=== PATIENT | female | born 1955 | race Caucasian/White ===

== ENCOUNTER → 2016-12-08 12:16 | Outpatient (CLI) | payer OTHER ==
[~2016-12-08 12:16] MED LIST: ATARAX 25 MG TA25 MG PO; AUGMENTIN 875-11 TAB PO; BROMFED-DM COU473 ML PO; BUPROPION HCL100 M1 PO; ESTRACE 0.5 MG0.5 MG PO; FLUTICASONE PRO16 GM NASAL; HCTZ25 MG PO; IPRATROPIUM BR42 MCG NASAL; KLONOPIN0.5 MG PO; LEVAQUIN750 MG PO; MEDROL DOSE PACK4 MG PO; PROAIR HFA8.5 GM INH; PROTONIX40 MG PO
[2017-01-05 13:39] VITALS: BMI 23.0
== END | disposition home or self-care (01) ==
LOC: D.RAD 12:16
DX: K21.9 Gastro-esophageal reflux disease without esophagitis (principal)

== ENCOUNTER 2017-01-05 11:24 | Inpatient (IN) | payer OTHER ==
[~2017-01-05] VITALS: Ht 165.1 cm; Wt 64.2 kg
--- NOTE | ~2017-01-05 | CN ---
PATIENT NAME:CINTHIA HUGHES MEDICAL RECORD: [id number] : 57 LOCATION:D. D.2103 ADMIT DATE: 01/05/17 ACCOUNT: [id number] CONSULTING PHYSICIAN: SKYE SPRINGER MD REFERRING PHYSICIAN: MILDRED WRIGHT MD DATE OF CONSULTATION: 01/05/2017 CONSULT REQUESTING PHYSICIAN: Mildred Wright MD. REASON FOR CONSULTATION: Acute hypoxic respiratory failure, multilobar pneumonia. HISTORY OF PRESENT ILLNESS: Ms. Hughes is a 61-year-old female, who is sick for the last 10 days. Initially, she was seen in the walk-in clinic, she was given some steroid injection and Augmentin, but patient is not getting any better. She has worsening shortness of breath. She would hear herself wheezing, cough with yellow color sputum production. According to the patient, 10 days ago, one of her relative has cold-like symptom and she has exposure to them. She also has shortness of breath with mild exertion for the last few days. She has some fever and generalized body aches and pain. According to the patient, she was checked for the flu and that was negative. On arrival to Dr. Ingram's office, her pulse ox was mid 70s. REVIEW OF SYSTEMS: CONSTITUTIONAL: She has allergic rhinitis, generalized body ache. HEENT: Sinus congestion. RESPIRATORY: As in history of present illness. CARDIOVASCULAR: Negative. GASTROINTESTINAL: She has some gastroesophageal reflux symptoms. Other review of the systems are negative. PAST MEDICAL HISTORY: 1. Allergic rhinitis. 2. Gastroesophageal reflux disease. 3. Multiple allergies for which she was taking some injection. PAST SURGICAL HISTORY: 1. She has a rotator cuff repair. 2. Right bunionectomy. 3. Hysterectomy 4. Tonsillectomy. 5. Appendectomy. ALLERGIES: There are no known drug allergies. PRESENT MEDICATIONS: She is on Rocephin IV, Zithromax IV, albuterol/ipratropium nebulizer. Her other medication is reviewed. PERSONAL AND SOCIAL HISTORY: The patient is a nonsmoker and nondrinker. She is and lives with her . FAMILY HISTORY: Significant for father had myocardial infarction. Mother has also heart disease. Mother is also having dementia. PHYSICAL EXAMINATION: CONSULT REPORT [id number] CINTHIA HUGHES GENERAL: Now, the patient is lying comfortably in bed. She is not in acute distress. VITAL SIGNS: The blood pressure is 103/57, pulse is 82, respirations 24, temperature is 98.8, SpO2 is 97% on 2 L nasal cannula. HEENT: Conjunctivae are pink. Sclerae nonicteric. NECK: Supple. No JVD. CHEST: There are bilateral crackles. No wheezing. HEART: Rhythm regular, normal sound, no murmur. ABDOMEN: Soft. Bowel sounds present. No hepatosplenomegaly. RECTAL: Deferred. EXTREMITIES: No cyanosis, no clubbing, no pedal edema. SKIN: Warm, normal turgor. CENTRAL NERVOUS SYSTEM: The patient is awake and alert. There is no obvious cranial nerve abnormality. The gait was not tested. CHEST RADIOGRAPH: There is hyperinflation. There is increased bilateral interstitial infiltrate. LABORATORY DATA: CBC: WBC 13.1, hemoglobin 12.9, hematocrit 37.2, the platelet count 354. Chemistry: Sodium 139, potassium 4.2, bicarbonate is 28.2, BUN is 16, creatinine is 1. Glucose 121. IMPRESSION: 1. Acute hypoxic respiratory failure secondary to multilobar pneumonia. 2. Leukocytosis secondary to pneumonia. 3. Allergic rhinitis. 4. History of multiple environmental allergies. She is on replacement therapy. 5. Gastroesophageal reflux disease. RECOMMENDATION: 1. Continue Rocephin. I will change the Zithromax to Levaquin as the patient has failed outpatient antibiotic. 2. Continue albuterol/ipratropium nebulizer. 3. GERD precaution. 4. Keep the head of the bed up by 30-degree. Continue Protonix. 4. Follow labs and chest radiograph. Check the BNP. Dr. Wright, once again thanks for involving me in the care of Ms. Hughes. TRANSINT:[id number] Voice Confirmation ID: [id number] DOCUMENT ID: [id number] SKYE SPRINGER MD CC: MILDRED WRIGHT MD [id number] DICTATION DATE: 01/05/171516 LPN OR MEDICAL ASSISTANT: 01/05/172155 ADM IN [facility] [address] [place] [address]
--- NOTE | 2017-01-05 11:46 | NUR ---
ARRIVE TO ROOM VIA WHEELCHAIR FROM 'S OFFICE. ALERT AND ORIENTED X4. REPORTS SOB. O2 SAT 85% RA. INITIATE OXYGEN THERAPY 2L NC. O2 SAT INCREASE TO 97% WITH 2L NC. DENIES PAIN. GAIT STEADY. GENERALIZED WEAKNESS DUE TO SOB. CONTINUE PLAN OF CARE AND ADMISSION PROCESS. SCDs IN ROOM. DENIES SCDs WHILE UP IN CHAIR.
[2017-01-05] MEDS ORDERED: BROMFED-DM COU473 ML PO (11:59)
[2017-01-05] MEDS ORDERED: AUGMENTIN 875-11 TAB PO (11:59)
[2017-01-05] MEDS ORDERED: PROAIR HFA8.5 GM INH (12:00)
[2017-01-05] MEDS ORDERED: ESTRACE 0.5 MG0.5 MG PO (12:01)
[2017-01-05] MEDS ORDERED: ATARAX 25 MG TA25 MG PO (12:01)
[2017-01-05] MEDS ORDERED: KLONOPIN0.5 MG PO (12:02)
[2017-01-05] MEDS ORDERED: BUPROPION HCL100 M1 PO (12:03)
[2017-01-05] MEDS ORDERED: IPRATROPIUM BR42 MCG NASAL (12:04)
[2017-01-05] MEDS ORDERED: HCTZ25 MG PO (12:04)
[2017-01-05] MEDS ORDERED: PROTONIX40 MG PO (12:04)
[2017-01-05] MEDS ORDERED: FLUTICASONE PRO16 GM NASAL (12:05)
[2017-01-05 12:25] LABS: BASOPHILS 0.2 % (0-2); EOSINOPHILS 1.4 % (0-7); HEMATOCRIT 37.2 % (36.0-48.0); HEMOGLOBIN 12.9 g/dL (12-16); IMMATURE GRANULOCYTES 0.2 % (0-5); LYMPHOCYTES 11.4 % (15-50); MCH 32.6 pg (26.0-34.0); MCHC 34.7 g/dL (31.0-37.0); MCV 93.9 fL (80.0-100.0); MEAN PLATELET VOLUME 8.4 fL (7.4-10.4); MONOCYTES 8.7 % (2-11); NEUTROPHILS 78.1 % (40-80); PLATELET COUNT 354 10x3/uL (130-400); RBC 3.96 10x6/uL (4.00-5.40); RDW 12.1 % (11.5-14.5); WBC 13.1 10x3/uL (4.8-10.8)
--- NOTE | 2017-01-05 12:30 | NUR ---
22G IV PLACED IN RIGHT FOREARM AND SALINE LOCKED. PT VERBALIZES BEING VERY ANXIOUS BUT DENIES NEEDS AT THIS TIME.
[2017-01-05 13:21] LABS: CALCIUM 9.7 mg/dL (8.5-10.1); CARBON DIOXIDE 28.2 mmol/L (21.0-32.0); POTASSIUM - SERUM 4.2 mmol/L (3.5-5.1)
[2017-01-05 13:39] VITALS: BP 103/57; Ht 165.1 cm; Wt 64.2 kg
[2017-01-05 16:00] VITALS: BP 104/39
[2017-01-05 20:00] VITALS: BP 109/48
[2017-01-06] VITALS: BP 89/56
[2017-01-06 04:00] VITALS: BP 96/43
[2017-01-06 05:15] LABS: BASOPHILS 0.1 % (0-2); EOSINOPHILS 3.2 % (0-7); HEMATOCRIT 34.1 % (36.0-48.0); HEMOGLOBIN 11.5 g/dL (12-16); IMMATURE GRANULOCYTES 0.3 % (0-5); LYMPHOCYTES 15.8 % (15-50); MCHC 33.7 g/dL (31.0-37.0); MEAN PLATELET VOLUME 8.6 fL (7.4-10.4); MONOCYTES 9.3 % (2-11); NEUTROPHILS 71.3 % (40-80); PLATELET COUNT 386 10x3/uL (130-400); RBC 3.59 10x6/uL (4.00-5.40); RDW 11.9 % (11.5-14.5)
[2017-01-06 05:25] LABS: WBC 8.8 10x3/uL (4.8-10.8)
[2017-01-06 05:31] LABS: ANION GAP 10.3 mmol/L (8-16); CALCIUM 9.6 mg/dL (8.5-10.1); CARBON DIOXIDE 29.8 mmol/L (21.0-32.0); MAGNESIUM - SERUM 1.9 mg/dL (1.8-2.4); POTASSIUM - SERUM 4.1 mmol/L (3.5-5.1)
--- NOTE | 2017-01-06 07:16 | HP ---
PATIENT: CINTHIA CHARLTON MEDICAL RECORD: [id number] ACCOUNT: [id number] LOCATION:[address] : [birth year] ADMISSION DATE: 01/05/17 HISTORY AND PHYSICAL EXAMINATION DATE OF ADMISSION: 01/05/2017 CHIEF COMPLAINT: Shortness of breath with cough and congestion. HISTORY OF PRESENT ILLNESS: The patient is a 61-year-old female, who apparently was seen in a local walk-in clinic, was treated with steroid injections as well as placed on Augmentin. The patient states she has had increasing shortness of breath. She has had cough. She has had congestion. She has had some yellow sputum production, pain with deep inspiration noted. PAST MEDICAL HISTORY: Her past history is significant that she has had rotator cuff repair on the right. She had a right bunionectomy. She had a hysterectomy in 1995, history of tonsillectomy as a child, appendectomy with peritonitis in 1982. ALLERGIES: She has no known drug allergies. MEDICATIONS: Her medications include Deanna-D 1 every 12 hours p.r.n. congestion, Augmentin 875 one q.12 hours, Wellbutrin 200 mg SR, 1 p.o. b.i.d., clonazepam 0.5 mg p.o. b.i.d., estradiol 5 mg, 1 p.o. q. day, HCTZ 12.5 mg once a day, fluticasone 50 mcg, 1 spray in each naris once a day, hydroxyzine 25 q.6 hours p.r.n., Protonix 40 mg, 1 p.o. q. day, and vitamin D2 of 50,000 international units every 12 weeks. FAMILY HISTORY: Mother had heart disease. Father had myocardial infarction. Mother also has dementia as well as Alzheimer's. Father has carotid artery stenosis. 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 She denies any cigarette use, but does have occasional vodka on water. SOCIAL HISTORY: Born and raised in [facility], recently relocated [place] the [facility] [place]. REVIEW OF SYSTEMS: GENERAL: She denies any headaches, seizure, or syncope. She denies change in visual or auditory acuity. PULMONARY: She does report increasing shortness of breath. She has had cough. She has had congestion and had yellow, green sputum production. CARDIOVASCULAR: No chest pain, palpitation, PND, or orthopnea. GASTROINTESTINAL: No chronic nausea, vomiting, melena, or hematochezia. GENITOURINARY: No urgency, frequency or dysuria. MUSCULOSKELETAL: Noncontributory. PHYSICAL EXAMINATION: VITAL SIGNS: Today, her weight is 143. Her blood pressure 118/66, her pulse was 100, respirations are 24, and O2 sat was 82% on room air, resting. HEENT: Unremarkable. NECK: Supple. There is no adenopathy. HEART: Slightly tachycardic. HISTORY AND PHYSICAL [id number] CINTHIA CHARLTON LUNGS: She has decreased breath sounds in all anguiano. ABDOMEN: Soft. The bowel sounds are positive. LABORATORY DATA: White count was elevated at 11.5. DIAGNOSTIC DATA: Chest x-ray shows early bilateral infiltrates. ASSESSMENT: Hypoxia, pneumonia, history of asthma, and depression. PLAN: The patient will be admitted, she was placed on Rocephin 1 gram q.24 hours, Zithromax 500 mg IV q.24 hours, DuoNeb updrafts q.4 hours. Sputum culture will be obtained. She will have a CT of the chest with PE protocol. Also, will be placed on 2 liters of O2. Pulmonary consultation will be obtained. TRANSINT:[id number] Voice Confirmation ID: [id number] DOCUMENT ID: [id number] MILDRED WRIGHT MD at 0716 CC: [id number] DICTATION DATE: 01/05/17 1058 SPEEDBOAT OPERATOR: 01/05/17 1246 ADM IN [facility] [id number] [place] [address]
[2017-01-06 08:16] VITALS: BP 102/70
--- NOTE | 2017-01-06 10:33 | NUR ---
O2 INCREASED TO 3L PER RT, SAT 91%.
--- NOTE | 2017-01-06 11:00 | NUR ---
AM ROUNDS - PT IN AWAKE AND ALERT IN BED. 2L O2 VIA NC. NS AT 15CC/HR IN RIGHT HAND. PT IS SOB AT THE MOMENT. O2 SAT IS 93%. PT STATES SHE HAS A NON PRODUCTIVE COUGH.. WILL CONTINUE TO MONITOR.
[2017-01-06 12:32] VITALS: BP 120/58
[2017-01-06 16:42] VITALS: BP 109/43
--- NOTE | 2017-01-06 19:25 | NUR ---
ALERT/AWAKE ORIENTED X 4. DENIES ANY NEEDS. IV IN R HAND INTACT/PATENT. 02 AT 2L/NC. RR 18 EVEN U/L. HER IS PRESENT IN ROOM. NO QUESTIONS OR CONCERNS VOICED.
[2017-01-06 20:00] VITALS: BP 100/38
--- NOTE | 2017-01-06 20:55 | NUR ---
ADMIN SCHED MEDS. REQUESTED ICE CREAM. NO OTHER NEEDS VOICED.
--- NOTE | 2017-01-06 23:52 | NUR ---
RESP TECH COLLETED SPUTUM SAMPLE. PRINTED OUT LABELS FOR HER.
[2017-01-07] VITALS: BP 107/38
[2017-01-07 04:00] VITALS: BP 111/43
--- NOTE | 2017-01-07 04:10 | NUR ---
REC KATIE TX. REQUESTED CUP OF COFFEE.
[2017-01-07 05:24] LABS: BASOPHILS 0.1 % (0-2); EOSINOPHILS 1.5 % (0-7); HEMATOCRIT 36.4 % (36.0-48.0); HEMOGLOBIN 12.3 g/dL (12-16); IMMATURE GRANULOCYTES 0.4 % (0-5); LYMPHOCYTES 11.8 % (15-50); MCHC 33.8 g/dL (31.0-37.0); MCV 94.8 fL (80.0-100.0); MEAN PLATELET VOLUME 8.5 fL (7.4-10.4); MONOCYTES 7.7 % (2-11); NEUTROPHILS 78.5 % (40-80); PLATELET COUNT 428 10x3/uL (130-400); RBC 3.84 10x6/uL (4.00-5.40)
[2017-01-07 05:34] LABS: WBC 13.1 10x3/uL (4.8-10.8)
[2017-01-07 05:48] LABS: ANION GAP 10.2 mmol/L (8-16); C-REACTIVE PROTEIN 17.3 mg/dL (0.0-0.9); CALCIUM 9.6 mg/dL (8.5-10.1); CARBON DIOXIDE 31.5 mmol/L (21.0-32.0); CREATININE - SERUM 1.1 mg/dL (0.6-1.3); MAGNESIUM - SERUM 1.8 mg/dL (1.8-2.4); POTASSIUM - SERUM 3.7 mmol/L (3.5-5.1)
[2017-01-07 06:34] LABS: ERYTHROCYTE SEDIMENTATION RATE 95 mm/hr (0-30)
--- NOTE | 2017-01-07 07:54 | NUR ---
AM ROUNDS - PT AWAKE AND ALERT IN BED. 2L OS VIA NC. NS AT KVO (15CC/HR) IN RIGHT HAND. PT STATES NO PAIN BUT SLEEPY. STATES SHE DID NOT SLEEP WELL LEST NIGHT. STATES THAT THE CONGESTION IN HER CHEST IS STARTING TO BREAK UP. SIDE RAILS UP X2. CALL LAZARO IN USE. WILL CONTINUE TO MONITOR.
[2017-01-07 08:19] VITALS: BP 96/49
[2017-01-07 12:18] VITALS: BP 101/50
[2017-01-07 16:51] VITALS: BP 102/50
--- NOTE | 2017-01-07 18:12 | NUR ---
PM NOTE - ND IN BED ON SIDE. AWAKE AND ALERT. ATE DINNER. NO NEEDS AT THIS TIME. WILL CONTINUE TO MONITOR
[2017-01-07 19:00] VITALS: BP 109/62
--- NOTE | 2017-01-07 19:05 | NUR ---
REC REPORT, ASSUMED CARE OF PATIENT. ALERT/AWAKE TALKING ON PHONE. DENIES PAIN OR ANY NEEDS. IV IN R HAND INTACT/PATENT. 02 AT 2L/NC. RR EVEN U/L. BED IS LOW, SR UP X2. BEDSIDE TABLE AND CALL LIGHT IN REACH.
--- NOTE | 2017-01-07 23:30 | NUR ---
RETURNING TO BED FROM BR. REQUESTED RESTORIL TO HELP HER SLEEP.
--- NOTE | 2017-01-08 02:19 | NUR ---
RESTING QUIETLY WITH EYES CLOSED. RR 18 EVEN U/L. 02 AT 2L/NC. CALL LIGHT IN REACH.
[2017-01-08 05:03] LABS: BASOPHILS 0 % (0-2); EOSINOPHILS 0 % (0-7); HEMOGLOBIN 12.4 g/dL (12-16); IMMATURE GRANULOCYTES 0.3 % (0-5); LYMPHOCYTES 6.2 % (15-50); MCH 32.3 pg (26.0-34.0); MCHC 34.4 g/dL (31.0-37.0); MCV 93.8 fL (80.0-100.0); MEAN PLATELET VOLUME 8.4 fL (7.4-10.4); MONOCYTES 5.1 % (2-11); NEUTROPHILS 88.4 % (40-80); PLATELET COUNT 416 10x3/uL (130-400); RBC 3.84 10x6/uL (4.00-5.40); RDW 12.2 % (11.5-14.5); WBC 11.3 10x3/uL (4.8-10.8)
[2017-01-08 05:27] LABS: ANION GAP 15.2 mmol/L (8-16); CALCIUM 10.3 mg/dL (8.5-10.1); CARBON DIOXIDE 26.1 mmol/L (21.0-32.0); CREATININE - SERUM 0.9 mg/dL (0.6-1.3); MAGNESIUM - SERUM 1.8 mg/dL (1.8-2.4)
[2017-01-08 05:29] LABS: POTASSIUM - SERUM 4.3 mmol/L (3.5-5.1)
[2017-01-08 07:33] VITALS: BP 108/79
[2017-01-08 08:00] VITALS: BP 109/51
[2017-01-08 08:16] LABS: IMMUNOGLOBULIN E 178 IU/mL (0-100)
--- NOTE | 2017-01-08 08:30 | NUR ---
PATIENT IS AWAKE AND ALERT, SHE IS SITTING UP IN BED, SHE HAS PATENT IV IN RIGHT F/A, SHE IS ON O2 @ 2 PER NC, SHE IS ORIENTED X3, LUNGS CLEAR, SHE SAYS SHE CAN ACTUALY BREATHE TODAY. SHE DOES CLEAR HER THROAT A LOT AND BELIEVES IT IS MORE RELATED TO HER ALLERGIES.
--- NOTE | 2017-01-08 11:04 | NUR ---
PATIENT IS AWAKE AND SITTING UP IN A CHAIR. SHE SAYS SHE JUST WALKED AROUND THE UNIT WITH PT AND ONLY HAD TO STOP ONCE. SHE SAYS SHE FEELS BETTER.
--- NOTE | 2017-01-08 13:00 | NUR ---
PATIENT HAS NO NEEDS.
--- NOTE | 2017-01-08 15:30 | NUR ---
PATIENT IS CALM NO NEEDS.
--- NOTE | 2017-01-08 17:33 | NUR ---
PATIENT DID GET UP TO SHOWER TODAY AND BED LINENS CHANGED.
[2017-01-08 20:00] VITALS: BP 102/50
--- NOTE | 2017-01-08 23:23 | NUR ---
NURSE ROUNDS 21:45 - PT AWAKE, ALERT, ORIENTED, DENIES ANY ACUTE NEEDS AND IS IN NO ACUTE DISTRESS. PT STATES SHE WALKED TWICE TODAY WITH PT AND DID WELL. PT REQUESTING HER PRN TEMAZEPAM FOR SLEEP. CONTINUE TO MONITOR CLOSELY. BED LOW, CALL LIGHT IN REACH, SIDE RAILS X 2, HOB 20 DEGREES.
[2017-01-09] VITALS: BP 97/52
[2017-01-09 04:00] VITALS: BP 102/41
--- NOTE | 2017-01-09 04:32 | NUR ---
PT LYING IN BED ON RIGHT SIDE, EYES CLOSED, RESPIRATIONS EVEN AND UNLABORED. SPECIMEN CUP PLACED IN PTS ROOM FOR ORDERED URINE. WILL COLLECT SOON POSSIBLE. CONTINUE TO MONITOR CLOSELY. BED LOW, CALL LIGHT IN REACH, SIDE RAILS X 2, HOB 20 DEGREES.
[2017-01-09 05:06] LABS: BASOPHILS 0 % (0-2); EOSINOPHILS 0.1 % (0-7); HEMATOCRIT 34.1 % (36.0-48.0); HEMOGLOBIN 11.6 g/dL (12-16); IMMATURE GRANULOCYTES 0.2 % (0-5); LYMPHOCYTES 7.6 % (15-50); MCV 94.2 fL (80.0-100.0); MEAN PLATELET VOLUME 8.3 fL (7.4-10.4); MONOCYTES 5.7 % (2-11); NEUTROPHILS 86.4 % (40-80); PLATELET COUNT 425 10x3/uL (130-400); RBC 3.62 10x6/uL (4.00-5.40); RDW 12.1 % (11.5-14.5)
[2017-01-09 05:15] LABS: WBC 14.6 10x3/uL (4.8-10.8)
[2017-01-09 05:48] LABS: CALC OSMOLALITY 278 mosm/kg (275-300); CARBON DIOXIDE 29.5 mmol/L (21.0-32.0); CHLORIDE - SERUM 100 mmol/L (98-107); CREATININE - SERUM 0.8 mg/dL (0.6-1.3); GLUCOSE 123 mg/dL (74-106); POTASSIUM - SERUM 4.3 mmol/L (3.5-5.1); SODIUM 138 mmol/L (136-145); eGFR NON AFRICAN AMERICAN 77 mL/min (90-120)
[2017-01-09 05:53] LABS: UREA NITROGEN 19 mg/dL (7-18)
--- NOTE | 2017-01-09 07:45 | NUR ---
CHARTS CHECKED. SHIFT ASSESSMENT COMPLETED. INTRODUCED MYSELF TO PT PRIMARY RN FOR TODAYS SHIFT. PT RESTING QUIETLY AND DENIES ANY CURRENT NEEDS AT THIS TIME. CL IN REACH. WILL CTM.
[2017-01-09 08:00] VITALS: BP 90/44
--- NOTE | 2017-01-09 15:40 | NUR ---
INITIATED PTS IVPB LEVAQUIN INFUSING VIA R.WRIST PIV SITE WITH DRSG CDI AND SWAB CAPS IN USE. PT SITTING UP IN BED REQUESTING QUIETLY DENIES ANY CURRENT PAIN OR NEEDS. CL IN REACH. WILL CPOC.
[2017-01-09 16:00] VITALS: BP 142/61
--- NOTE | 2017-01-09 18:42 | NUR ---
PT AMBULATED 4 LAPS AROUND NURSES STATION WITH 3L NC VIA PORTABLE OXYGEN PULSE OX STAYED BETWEEN 90-93% STATES SHE FELT REALLY GOOD ABOUT IT AND DENIES SOB.
--- NOTE | 2017-01-09 19:51 | NUR ---
RECEIVED IN BEDROOM. LAYING IN BHED WITH EYES OPEN. IN GOOD SPIRITS. STATES THAT SHE SHOULD DISCHARGE TOMORROW. DENIES NEEDS AT THIS TIME. CALL LIGHT IN REACH.
[2017-01-09 22:11] VITALS: BP 149/62
--- NOTE | 2017-01-09 23:26 | NUR ---
RESTING EYES CLOSED. NO SIGNS OF DISTRESS. CALL LIGHT IN REACH
[2017-01-10] VITALS: BP 111/55
[2017-01-10 04:56] LABS: BASOPHILS 0 % (0-2); EOSINOPHILS 0 % (0-7); HEMATOCRIT 35.9 % (36.0-48.0); HEMOGLOBIN 11.8 g/dL (12-16); IMMATURE GRANULOCYTES 0.3 % (0-5); LYMPHOCYTES 9.3 % (15-50); MCH 31.6 pg (26.0-34.0); MCHC 32.9 g/dL (31.0-37.0); MEAN PLATELET VOLUME 8.6 fL (7.4-10.4); MONOCYTES 5.6 % (2-11); NEUTROPHILS 84.8 % (40-80); PLATELET COUNT 472 10x3/uL (130-400); RBC 3.74 10x6/uL (4.00-5.40); RDW 12.2 % (11.5-14.5); WBC 14.5 10x3/uL (4.8-10.8)
[2017-01-10 05:02] LABS: ANION GAP 10.6 mmol/L (8-16); CALCIUM 9.7 mg/dL (8.5-10.1); CARBON DIOXIDE 34.8 mmol/L (21.0-32.0); POTASSIUM - SERUM 4.4 mmol/L (3.5-5.1)
[2017-01-10 06:17] VITALS: BP 155/60
[2017-01-10] MEDS ORDERED: LEVAQUIN750 MG PO (07:11)
[2017-01-10] MEDS ORDERED: MEDROL DOSE PACK4 MG PO (07:12)
--- NOTE | 2017-01-10 07:25 | NUR ---
0712-AWAKE, DENIES NEEDS AT PRESENT TIME. WANTING TO GO HOME. SALINE LOCK SEEN TO RIGHT HAND. ON ROOM AIR. ON EP, LAB VALUES ARE NORMAL. WILL CONTINUE TO MONITOR.
[2017-01-10 08:45] VITALS: BP 133/62
--- NOTE | 2017-01-10 10:49 | NUR ---
Patient Name: CINTHIA CHARLTON Admission Status: Elective Accout number: [id number] Admission Date: 01-05-2017 : 1955 Admission Diagnosis:HYPOXEMIA Attending: ROSIBEL Current LOS: 5 Anticipated DC Date: 01-10-2017 Planned Disposition: Home Primary Insurance: [facility] PPO Discharge Planning Comments: * Is the patient Alert and Oriented? Yes 0 * How many steps to enter\exit or inside your home? 4 0 * PCP DR. WRIGHT 0 * Pharmacy [address] 0 * Preadmission Environment Home with Family 0 * ADLs Independent 0 * Equipment None 0 * Other Equipment NO MEDICAL EQUIPMENT PROVIDER PREFERENCE 0 * List name and contact numbers for known caregivers / representatives who currently or will assist patient after discharge: ANTHONY CHARLTON, SPOUSE, 0 * Community resources currently utilized None 0 * Please name any agencies selected above. NONE 0 * Additional services required to return to the preadmission environment? No 0 * Can the patient safely return to the preadmission environment? Yes 0 * Has this patient been hospitalized within the prior 30 days at any hospital? No 0 CM RECEIVED ORDER FOR OXYGEN AND NEBULIZER. CM MET WITH PT IN ROOM TO DISCUSS DISCHARGE PLANNING AND NEEDS. PT REPORTS LIVING AT HOME INDEPENDENTLY WITH HER SPOUSE. PT REPORTS WORKING FROM HOME. PT HAS NO MEDICAL EQUIPMENT AND NO OUTSIDE SERVICES ASSISTING IN THE HOME. CM DISCUSSED AVAILABILITY OF HOME HEALTH, REHAB SERVICES AND MEDICAL EQUIPMENT. PT REPORTS NEEDING OXYGEN AND NEBULIZER, SHE HAS NO PREFERENCE ON PROVIDER. PT REPORTS HER SPOUSE WILL PICK HER UP FOR DISCHARGE HOME. CM CALLED [facility], , SPOKE TO [place] AND PROVIDED REFERRAL INFORMATION REQUESTING HOSPITAL DELIVERY OF PORTABLE OXYGEN FOR PT'S DISCHARGE HOME. CM FAXED ORDER WITH REFERRAL INFORMATION TO [facility] AT [phone]. [facility] TO DELIVER PORTABLE OXYGEN TO HOSPITAL ROOM FOR PT'S DISCHARGE HOME, WILL ARRANGE HOME CONCENTRATOR AND NEBULIZER DELIVERY AT PT'S HOME. PT NOTIFIED WHO DENIES FURTER DISCHARGE NEEDS. Copy Coordinator: Qamar Thomas
[2017-01-10 11:12] LABS: ANA REFLEX - DIRECT Negative (Negative)
[2017-01-10 12:47] VITALS: BP 126/46
--- NOTE | 2017-01-10 14:09 | NUR ---
VERBAL AND WRITTEN DISCHARGE INSTRUCTIONS GIVEN TO PATIENT AND . DISCHARGED HOME ON PORTABLE OXYGEN. SALINE LOCK REMOVED WITH CATH TIP INTACT.
[2017-01-10 22:07] LABS: MYCOPLASMA PNEUMO IGG 604 U/mL (0-99)
--- NOTE | 2017-01-11 06:55 | DS ---
PATIENT:CINTHIA CHARLTON :57 MEDICAL RECORD: [id number] DISCHARGE SUMMARY ADMISSION DATE: 01/05/17 DISCHARGE DATE: 01/10/17 DATE OF ADMISSION: 01/05/17 DATE OF DISCHARGE: 01/10/17. CONDITION ON DISCHARGE: Improved. ADMITTING DIAGNOSES: Hypoxia with pneumonia. DISCHARGE DIAGNOSES: Hypoxia with pneumonia. HOSPITAL COURSE: A 61-year-old female who presented complaining of having cough and congestion. She had been seen in a local walk-in clinic, was given steroids as well as Augmentin. The patient presented to the office with extremely short of breath. PHYSICAL EXAMINATION: VITAL SIGNS: Her blood pressure 118/66, her pulse 100, respirations 24, and O2 sat was 82% on room air. She was resting. HEENT: Unremarkable. NECK: Supple. There is no adenopathy. HEART: Slightly tachycardic. LUNGS: She had decreased breath sounds in all anguiano. LABORATORY DATA: White count 11.8. Chest x-ray showed early bilateral infiltrates. The patient was admitted, placed on Rocephin as well as Zithromax. She also had a CTA of the chest showing no evidence of pulmonary embolus. She was seen in consultation by Dr. Chang. She was switched her from Zithromax to Levaquin. She was given updraft therapy as well as O2 supplementation. Her condition slowly began to improve, although she remained somewhat hypoxic on the morning of the 1st, she was afebrile. Vital signs were stable. She had O2 level of 88% on room air, went up to 92% on 2 liters. She had a white count of 14.5, hemoglobin 11, hematocrit 35.9, platelets were 472. Sodium 140, potassium 4.4, chloride is 99, CO2 was 34.8, her BUN is 19, creatinine is 1, and it was felt the patient was stable and could be discharged. DISCHARGE INSTRUCTIONS: She was discharged on Medrol Dosepak take as directed, Levaquin 750 mg one p.o. q d. for 5 more days. The patient was continued on Bromfed DM cough syrup also ProAir 2 puffs q.4 hours p.r.n. shortness of breath, Estrace 0.5 mg once a day, hydroxyzine 12.5 mg q 6 hours p.r.n. anxiety, clonazepam 0.5 mg b.i.d., Wellbutrin 100 mg b.i.d., hydrochlorothiazide 12.5 mg once a day, Protonix 40 mg once a day, Atrovent 2 sprays in each naris t.i.d. or b.i.d., Flonase 2 squirts in each naris daily. The patient was discharged to follow up with me on . She would also be on a regular diet. The patient would require portable O2 at 2 liters per minute. She will also call for followup with Dr. Grant. TRANSINT:[id number] Voice Confirmation ID: [id number] DOCUMENT ID: [id number] DISCHARGE SUMMARY REPORT [id number] CINTHIA CHARLTON JAMES MD at 0655 CC: [id number] DICTATION DATE: 01/10/17717 WIND TUNNEL TECHNICIAN: 01/10/17 1003 DIS IN 01/10/17 [facility] [address] [place] [address]
[2017-01-11 16:13] LABS: ANCA - ANTIMYELOPEROXIDASE <9.0 U/mL (0.0-9.0); ANCA - ANTIPROTEINASE 3 <3.5 U/mL (0.0-3.5); ANCA - ATYPICAL <1:20 titer (Neg:<1:20); ANCA - CYTOPLASMIC <1:20 titer (Neg:<1:20); ANCA - PERINUCLEAR <1:20 titer (Neg:<1:20)
[2017-01-12 12:16] LABS: A. FUMIGATUS #1 ABS Negative (Negative); PNEUM - A PULLULANS ABS Negative (Negative); PNEUM - MICROPOLY FAENI ABS Negative (Negative); PNEUM - PIGEON SERUM ABS Negative (Negative); PNEUM - THERMOA VULGARIS #1 Negative (Negative); PNEUM - THERMOACT SACCHARII Negative (Negative)
== END 2017-01-10 14:11 | disposition home or self-care (01) | DRG 196 ==
LOC: D.M2 11:24
PROVIDERS: Family Medicine; Internal Medicine Pulmonary Disease; ADMIT Family Medicine
DX: J67.9 Hypersensitivity pneumonitis due to unspecified organic dust (principal); J96.01 Acute respiratory failure with hypoxia; D69.0 Allergic purpura; F32.9 Major depressive disorder, single episode, unspecified; K21.9 Gastro-esophageal reflux disease without esophagitis; D64.9 Anemia, unspecified; I10 Essential (primary) hypertension; G47.00 Insomnia, unspecified; J30.9 Allergic rhinitis, unspecified

== ENCOUNTER → 2017-04-15 09:45 | Outpatient (CLI) | payer OTHER ==
[2017-01-05 13:39] VITALS: BMI 23.0
== END | disposition home or self-care (01) ==
LOC: D.RT 09:45
DX: J44.9 Chronic obstructive pulmonary disease, unspecified (principal)

== ENCOUNTER 2017-04-28 08:30 | Outpatient (CLI) | payer OTHER ==
[~2017-04-28] VITALS: Ht 165.1 cm; Wt 63.6 kg
[2017-04-28] MEDS ORDERED: AZELASTINE137 MCG/0. NASAL (09:04)
[2017-04-28 09:09] VITALS: BP 111/47; Ht 165.1 cm; Wt 63.6 kg
[2017-04-28 09:23] LABS: BASOPHILS 0.2 % (0-2); HEMOGLOBIN 14.2 g/dL (12-16); IMMATURE GRANULOCYTES 0.2 % (0-5); LYMPHOCYTES 23.1 % (15-50); MCHC 34.6 g/dL (31.0-37.0); MCV 92.3 fL (80.0-100.0); MONOCYTES 5.3 % (2-11); NEUTROPHILS 69.2 % (40-80); RBC 4.44 10x6/uL (4.00-5.40); RDW 12.5 % (11.5-14.5); WBC 10.5 10x3/uL (4.8-10.8)
[2017-04-28 09:44] LABS: PLATELET COUNT 278 10x3/uL (130-400)
[2017-04-28 09:51] LABS: APTT 29.6 SECONDS (22.8-39.4); INR 1.03 (0.85-1.17); PROTIME 13.3 SECONDS (11.6-15.0)
[2017-04-28 16:39] LABS: EOS BF 3 %; LYMPH - BF 46 %; MACROPHAGES BF 9 %; MESOTHELIALS BF 35 %; NEUT - BF 7 %
[2017-04-29 16:14] LABS: ACID FAST SMEAR Negative (()); AFB SPECIMEN PROCESSING Concentration (())
[2017-05-01 11:08] LABS: FUNGUS STAIN Final report (())
== END 2017-04-28 13:00 | disposition home or self-care (01) ==
LOC: D.OPS 08:30
PROVIDERS: Internal Medicine Pulmonary Disease
DX: J84.9 Interstitial pulmonary disease, unspecified (principal); J96.11 Chronic respiratory failure with hypoxia; J30.9 Allergic rhinitis, unspecified; J45.909 Unspecified asthma, uncomplicated; K21.9 Gastro-esophageal reflux disease without esophagitis; D64.9 Anemia, unspecified; I10 Essential (primary) hypertension; Z01.812 Encounter for preprocedural laboratory examination

== ENCOUNTER → 2017-08-19 15:13 | Outpatient (CLI) | payer OTHER ==
[2017-04-28 09:09] VITALS: BMI 23.3
[~2017-08-19 15:13] MED LIST changes: +AZELASTINE137 MCG/0. NASAL
== END | disposition home or self-care (01) ==
LOC: D.MAMMO 06-23 15:45
DX: Z12.31 Encounter for screening mammogram for malignant neoplasm of breast (principal)

== ENCOUNTER 2018-08-21 08:00 | Outpatient (CLI) | payer OTHER ==
[2017-04-28 09:09] VITALS: BMI 23.3
== END 2018-08-21 09:00 | disposition home or self-care (01) ==
LOC: D.MAMMO 08:00
DX: Z12.31 Encounter for screening mammogram for malignant neoplasm of breast (principal)

== ENCOUNTER → 2019-02-16 07:28 | Outpatient (CLI) | payer OTHER ==
[2017-04-28 09:09] VITALS: BMI 23.3
[2019-02-16 09:21] LABS: BASOPHILS 0.2 % (0-2); EOSINOPHILS 4.5 % (0-7); HEMATOCRIT 40.8 % (36.0-48.0); HEMOGLOBIN 14.4 g/dL (12-16); IMMATURE GRANULOCYTES 0.1 % (0-5); LYMPHOCYTES 29.8 % (15-50); MCH 32.6 pg (26.0-34.0); MCHC 35.3 g/dL (31.0-37.0); MCV 92.3 fL (80.0-100.0); MEAN PLATELET VOLUME 8.9 fL (7.4-10.4); MONOCYTES 5.1 % (2-11); NEUTROPHILS 60.3 % (40-80); PLATELET COUNT 273 10x3/uL (130-400); RBC 4.42 10x6/uL (4.00-5.40); RDW 12.5 % (11.5-14.5); WBC 8.3 10x3/uL (4.8-10.8)
== END | disposition home or self-care (01) ==
LOC: D.RT 07:28 → D.CT 02-27 09:30
PROVIDERS: ATTEND Internal Medicine Pulmonary Disease
DX: J98.4 Other disorders of lung (principal)